=== PATIENT | female | born 1990 | race Caucasian/White ===

== ENCOUNTER 2020-11-08 15:56 | Emergency (ER) | payer OTHER ==
[~2020-11-08 15:56] MED LIST: IBUPROFEN600 MG PO; NORCO 5-325 TA1 EACH PO
== END 2020-11-08 17:20 | disposition home or self-care (01) ==
LOC: ER1 15:56
DX: Z04.1 Encounter for examination and observation following transport accident (principal); Z88.1 Allergy status to other antibiotic agents; V49.40XA Driver injured in collision with unspecified motor vehicles in traffic accident, initial encounter; Z3A.37 37 weeks gestation of pregnancy
CPT/HCPCS: 99283; G0378; G0379; G0463

== ENCOUNTER 2020-11-20 13:09 | Outpatient (CLI) | payer OTHER ==
[2020-11-20 14:10] LABS: HEMOGLOBIN 11.7 gm/dl (12.3-15.3); RED BLOOD COUNT 4.02 M/UL (4.00-5.10); WHITE BLOOD COUNT 11.5 K/UL (4.5-11.0)
[2020-11-21] MEDS ORDERED: HYDROCODON-ACE1 EAC4 PO (08:11)
[2020-11-21] MEDS ORDERED: DOCUSATE SODIU100 MG PO (08:11)
[2020-11-21] MEDS ORDERED: IBUPROFEN600 MG PO (08:11)
== END 2020-11-20 14:00 | disposition home or self-care (01) ==
LOC: GENOP 13:09
PROVIDERS: Obstetrics & Gynecology
DX: Z01.812 Encounter for preprocedural laboratory examination (principal)
CPT/HCPCS: 36415; 81001; 85025

== ENCOUNTER 2020-11-21 05:32 | Inpatient (IN) | payer OTHER ==
[2020-11-21] MEDS ORDERED: HYDROCODON-ACE1 EAC4 PO (08:11)
[2020-11-21] MEDS ORDERED: IBUPROFEN600 MG PO (08:11)
[2020-11-21] MEDS ORDERED: DOCUSATE SODIU100 MG PO (08:11)
[2020-11-22 06:16] LABS: HEMOGLOBIN 10.3 gm/dl (12.3-15.3)
== END 2020-11-22 16:07 | disposition home or self-care (01) | DRG 788 ==
LOC: OB 05:32
PROVIDERS: ADMIT Obstetrics & Gynecology
PROC: 10D00Z1 Extraction of Products of Conception, Low, Open Approach (ICD-10-PCS; principal; 2020-11-21 08:00)
DX: O34.211 Maternal care for low transverse scar from previous cesarean delivery (principal); N85.8 Other specified noninflammatory disorders of uterus; Z3A.39 39 weeks gestation of pregnancy; Z37.0 Single live birth
CPT/HCPCS: 36415; 81001; 82800; 85014; 85018; 85025; C9113; J0690; J1885; J2274; J2405; J2590; J3010; J7120